=== PATIENT | male | born 2000 | race Caucasian/White ===

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

== ENCOUNTER 2023-04-08 08:11 | Emergency (ER) | payer BC ==
[~2023-04-08] VITALS: Ht 167.6 cm; Wt 77.1 kg
[~2023-04-08 08:11] MED LIST changes: +AMOX500T2 PO; +CIPR7.5D EACH EAR; +NEOM10DR11 EACH EAR
[2023-04-08] MEDS ORDERED: GUAI5SYR4 GT (08:26)
[2023-04-08] MEDS ORDERED: ACETAMINOPHEN ES 500 MG TABLET PO ONE (08:30)
[2023-04-08] MEDS ORDERED: ACETAMINOPHEN ES 500 MG TABLET ONE (08:36)
--- NOTE | 2023-04-08 08:37 | NUR ---
PT WAS EVALUATED BY DR CANTRELL. PT WAS D/C'd TO HOME. D/C INSTRUCTIONS GIVEN TO THE PT AND TO HIS FATHER.
[2023-04-08 08:43] VITALS: BP 128/79
== END 2023-04-08 08:44 | disposition home or self-care (01) ==
LOC: ER 08:11
DX: J02.9 Acute pharyngitis, unspecified (principal); Z91.012 Allergy to eggs; Z91.09 Other allergy status, other than to drugs and biological substances; Z79.2 Long term (current) use of antibiotics
CPT/HCPCS: A4663; A9150

== ENCOUNTER 2025-03-12 20:07 | Emergency (ER) | payer BC ==
[~2025-03-12] VITALS: Ht 167.6 cm; Wt 81.6 kg
[~2025-03-12 20:07] MED LIST changes: +GUAI5SYR4 GT
[2025-03-12 20:35] LABS: BASOPHILS % (AUTO) 0.4 % (0.0-2.0); DIFFERENTIAL COMMENT 0; EOSINOPHILS % (AUTO) 0.5 % (0.0-7.0); HEMATOCRIT 45.8 % (36.7-47.1); HEMOGLOBIN 16.3 g/dL (12.5-16.3); LYMPHOCYTES # (AUTO) 1.3 K/uL (0.8-4.8); LYMPHOCYTES % (AUTO) 15.4 % (20.5-51.5); MEAN CORPUSCULAR HEMOGLOBIN 31.5 uug (23.8-33.4); MEAN CORPUSCULAR HGB CONC 36 g/dL (32.5-36.3); MEAN CORPUSCULAR VOLUME 88.1 fL (73.0-96.2); MONOCYTES # (AUTO) 1.2 K/uL (0.1-1.30); MONOCYTES % (AUTO) 14.1 % (0.0-11.0); NEUTROPHILS # (AUTO) 5.7 K/uL (1.8-8.9); NEUTROPHILS % (AUTO) 69.6 % (38.5-71.5); PLATELET COUNT (AUTO) 211 K/uL (152-348); RED BLOOD CELL COUNT(AUTO) 5.19 MIL/uL (4.06-5.63); RED CELL DISTRIBUTION WIDTH 12.9 % (12.1-16.2); WHITE BLOOD COUNT (AUTO) 8.2 K/uL (3.6-10.2)
[2025-03-12] MEDS ORDERED: chlorproMAZINE 50 MG/2 ML AMPUL ONE (20:38)
[2025-03-12] MEDS: chlorproMAZINE 50 MG/2 ML AMPUL IM ONE (20:42)
[2025-03-12 20:44] LABS: CALCIUM 9.7 mg/dL (8.5-10.1); CREATININE 0.9 mg/dL (0.6-1.3); POTASSIUM 3.6 mmol/L (3.5-5.1)
[2025-03-12 20:50] LABS: ALBUMIN 4.1 g/dL (3.4-5.0); BILIRUBIN,DIRECT 0.2 mg/dL (0.0-0.2); BILIRUBIN,TOTAL 1.3 mg/dL (0.2-1.0); TOTAL PROTEIN, SERUM 7.5 g/dL (6.4-8.2)
[2025-03-12 23:30] VITALS: BP 115/72; O2SAT 95
== END 2025-03-12 23:31 | disposition home or self-care (01) ==
LOC: ER 20:17
DX: R06.6 Hiccough (principal); R07.9 Chest pain, unspecified; R06.00 Dyspnea, unspecified; F17.200 Nicotine dependence, unspecified, uncomplicated; Z88.7 Allergy status to serum and vaccine; Z87.39 Personal history of other diseases of the musculoskeletal system and connective tissue; Z91.012 Allergy to eggs; Z91.09 Other allergy status, other than to drugs and biological substances
CPT/HCPCS: 99285; 71045; 80076; 80048; 83690; 85025; 84484 ×2; 36415; 93005; 96372; J3230; A4606; A4663